=== PATIENT | male | born 1965 | race Caucasian/White ===

== ENCOUNTER 2024-10-30 07:52 | Emergency (ER) | payer BC ==
[~2024-10-30] VITALS: Ht 172.7 cm; Wt 73.5 kg
[2024-10-30 08:31] LABS: BASOPHILS % (AUTO) 0.1 % (0.0-2.0); EOSINOPHILS % (AUTO) 0.4 % (0.0-7.0); HEMATOCRIT 47.7 % (36.7-47.1); HEMOGLOBIN 16.1 g/dL (12.5-16.3); LYMPHOCYTES # (AUTO) 0.3 K/uL (0.8-4.8); LYMPHOCYTES % (AUTO) 2.7 % (20.5-51.5); MEAN CORPUSCULAR HGB CONC 34 g/dL (32.5-36.3); MONOCYTES # (AUTO) 0.3 K/uL (0.1-1.30); NEUTROPHILS # (AUTO) 10.4 K/uL (1.8-8.9); NEUTROPHILS % (AUTO) 93.8 % (38.5-71.5); PLATELET COUNT (AUTO) 189 K/uL (152-348); RED BLOOD CELL COUNT(AUTO) 5.55 MIL/uL (4.06-5.63); RED CELL DISTRIBUTION WIDTH 13.8 % (12.1-16.2); WHITE BLOOD COUNT (AUTO) 11.1 K/uL (3.6-10.2)
[2024-10-30 08:32] LABS: DIFFERENTIAL COMMENT 1
[2024-10-30 08:46] LABS: CALCIUM 9.6 mg/dL (8.5-10.1); CREATININE 0.9 mg/dL (0.6-1.3); POTASSIUM 4.2 mmol/L (3.5-5.1)
[2024-10-30] MEDS: IV NORMAL SALINE 1000 ML BAG IV ONE (08:48)
[2024-10-30] MEDS ORDERED: KETOROLAC TROMETHAMINE 15 MG INJ ONE (08:50)
[2024-10-30] MEDS ORDERED: METOCLOPRAMIDE HCL 10 MG/2 ML VIAL ONE (08:51)
[2024-10-30 08:56] LABS: BILIRUBIN,DIRECT 0.2 mg/dL (0.0-0.2); BILIRUBIN,TOTAL 1.1 mg/dL (0.2-1.0)
[2024-10-30] MEDS: METOCLOPRAMIDE HCL 10 MG/2 ML VIAL IV ONE (08:56)
[2024-10-30 08:57] LABS: TOTAL PROTEIN, SERUM 7.4 g/dL (6.4-8.2)
[2024-10-30] MEDS: KETOROLAC TROMETHAMINE 15 MG INJ IVP ONE (08:57)
[2024-10-30] MEDS ORDERED: METO-295 PO (10:31)
[2024-10-30 10:58] VITALS: BP 131/56; TEMP 98.7; O2SAT 98
== END 2024-10-30 10:59 | disposition home or self-care (01) ==
LOC: ER 07:52
DX: B34.9 Viral infection, unspecified (principal); R11.2 Nausea with vomiting, unspecified; E86.0 Dehydration; Z20.822 Contact with and (suspected) exposure to COVID-19; Z88.7 Allergy status to serum and vaccine
CPT/HCPCS: 99284; 96374; 96361; 96375; 87426; 87804 ×2; 80076; 80048; 83690; 85025; 36415; J1885; J2765; J7040; A4606; A4663